=== PATIENT | female | born 1980 | race Caucasian/White ===

== ENCOUNTER 2017-12-16 11:23 | Outpatient (CLI) | payer OTHER ==
[~2017-12-16 11:23] MED LIST: PRENATABS RX TA1 TAB
== END 2017-12-16 11:35 | disposition home or self-care (01) ==
LOC: MAMO-SONO 11:23
DX: N60.11 Diffuse cystic mastopathy of right breast (principal); N60.12 Diffuse cystic mastopathy of left breast; N64.4 Mastodynia; Z12.31 Encounter for screening mammogram for malignant neoplasm of breast

== ENCOUNTER 2018-01-07 09:04 | Outpatient (CLI) | payer OTHER | END 2018-01-07 09:17 | disposition home or self-care (01) | LOC: LAB 09:04 | DX: N91.2 Amenorrhea, unspecified (principal); E03.9 Hypothyroidism, unspecified; N92.1 Excessive and frequent menstruation with irregular cycle ==

== ENCOUNTER 2019-07-20 05:15 | Day surgery (SDC) | payer OTHER | END 2019-07-20 13:55 | disposition home or self-care (01) | LOC: CIR.AMB 05:15 | DX: O02.1 Missed abortion (principal); Z3A.01 Less than 8 weeks gestation of pregnancy ==

== ENCOUNTER 2021-12-04 13:22 | Outpatient (CLI) | payer OTHER | END 2021-12-04 13:35 | disposition home or self-care (01) | LOC: SONOGRAMA 13:22 | PROVIDERS: ATTEND Physical Medicine & Rehabilitation Pain Medicine | DX: M25.531 Pain in right wrist (principal); M25.532 Pain in left wrist; M06.4 Inflammatory polyarthropathy ==

== ENCOUNTER 2022-01-14 12:15 | Outpatient (CLI) | payer OTHER | END 2022-01-14 12:23 | disposition home or self-care (01) | LOC: SONOGRAMA 12:15 | PROVIDERS: ATTEND Obstetrics & Gynecology Maternal & Fetal Medicine | DX: N64.1 Fat necrosis of breast (principal) ==

== ENCOUNTER 2022-04-30 12:39 | Outpatient (CLI) | payer OTHER | END 2022-04-30 12:52 | disposition home or self-care (01) | LOC: RAD 12:39 | PROVIDERS: ATTEND Legal Medicine | DX: R05.9 Cough, unspecified (principal) ==